=== PATIENT | female | born 2000 | race African-American/Black ===

== ENCOUNTER 2020-08-15 12:00 | Emergency (ER) | payer OTHER ==
[2020-08-15 12:26] LABS: Absolute Lymphocytes (CBC) 1.6 K/uL (0.7-4.9); Hematocrit 43.5 % (36.0-45.0); Lymphocytes % 21.6 % (15.3-44.8); MPV 9.4 fL (7.6-11.3); RBC Red Blood Cell Count 5.09 M/uL (3.86-4.86)
[2020-08-15] MEDS ORDERED: MORPHINE 2 MG/ML SYR ONE (12:31)
[2020-08-15] MEDS ORDERED: NA CHLORIDE 0.9% 1,000 ML ONE (12:31)
[2020-08-15] MEDS ORDERED: ONDANSETRON 4 MG/2 ML VIAL ONE (12:31)
[2020-08-15 12:52] LABS: Albumin 4.3 g/dL (3.4-5.0); Bilirubin Direct 0.2 mg/dL (0-0.2); Bilirubin Total 0.6 mg/dL (0.2-1.0); Protein, Total 8.8 g/dL (6.4-8.2)
[2020-08-15 13:10] LABS: BUN Blood Urea Nitrogen 13 mg/dL (7-18); Bicarbonate 19 mmol/L (21-32); Glucose Level 84 mg/dL (74-106); HCG, Quantitative 107241 mIU/mL (1-3); Potassium 3.6 mmol/L (3.5-5.1); Sodium Level 133 mmol/L (136-145)
--- NOTE | 2020-08-15 13:29 | ER ---
Nurse's Notes [facility] Name: David Foster Age: 20 yrs Sex: Female : 2000 Arrival Date: 08/15/2020 Time: 12:01 Bed 4 Private MD: Diagnosis: 8 weeks gestation of ;Lower abdominal pain, unspecified Presentation: 08/15 12:10 Chief complaint: Patient states: Pt reports that she is 23 weeks confirmed by ss US. Pt is in police custody and states that when she went to lay down in the bunk she had sudden onset of RLQ pain. Coronavirus screen: Client denies travel out of the [place] in the last 14 days. Ebola Screen: Patient denies exposure to infectious person. Patient denies travel to an Ebola-affected area in the 21 days before illness onset. Initial Sepsis Screen: Does the patient meet any 2 criteria? No. Patient's initial sepsis screen is negative. Does the patient have a suspected source of infection? No. Patient's initial sepsis screen is negative. Risk Assessment: Do you want to hurt yourself or someone else? Patient reports no desire to harm self or others. Note Attempted to send patient straight to L\T\D per protocol, but L\T\D nurse, THOR Edwards sent patient back stating that she believed patient was only 16 weeks 1 day. Onset of symptoms was August 15, 2020. 12:10 Method Of Arrival: EMS: [facility] 12:10 Acuity: NAVEED 3 LVN HOME HEALTH: 13:30 2, LMP 03/11/2020 kb Historical: - Allergies: 12:14 No Known Allergies; ss - Home Meds: 12:14 Vitamin Oral tab 1 tab once daily [Active]; unknown BP medication [Active]; ss - PMHx: 12:14 Hypertension; ss - PSHx: 12:14 None; ss - Immunization history:: Adult Immunizations up to date. - Social history:: Smoking status: Patient denies any tobacco usage or history of. Screenin:10 Abuse screen: Denies threats or abuse. Denies injuries from another. Nutritional hb screening: No deficits noted. Tuberculosis screening: No symptoms or risk factors identified. Fall Risk None identified. Assessment: 12:15 General: Appears distressed, Behavior is crying, wailing loudly. Pain: Pain currently hb is 10 out of 10 on a pain scale. Neuro: Level of Consciousness is awake, alert, obeys commands, Oriented to person, place, time, situation. Cardiovascular: Capillary refill < 3 seconds Patient's skin is warm and dry. Respiratory: Respiratory effort is even, unlabored, Respiratory pattern is regular, symmetrical. GI: Reports lower abdominal pain. : No signs and/or symptoms were reported regarding the genitourinary system. EENT: No signs and/or symptoms were reported regarding the EENT system. Derm: Skin is pink, warm \T\ dry. Musculoskeletal: No signs and/or symptoms reported regarding the musculoskeletal system. 13:00 Reassessment: Patient appears in no apparent distress at this time. Patient and/or hb family updated on plan of care and expected duration. Pain level reassessed. Patient is alert, oriented x 3, equal unlabored respirations, skin warm/dry/pink. Vital Signs: 12:10 Resp 25; Weight 55.34 kg; Height 5 ft. 5 in. (165.10 cm); Pain 9/10; ss 13:08 BP 124 / 91; Pulse 77; Resp 16; Pulse Ox 100% ; sv 12:10 Body Mass Index 20.30 (55.34 kg, 165.10 cm) ss ED Course: 12:01 Patient arrived in ED. ss 12:07 Kristy Mensah FNP-C is PHCP. kb 12:07 Nicanor Corona MD is Attending Physician. kb 12:10 Patient has correct armband on for positive identification. Placed in gown. Bed in low hb position. Call light in reach. Side rails up X 1. 12:10 Inserted saline lock: 18 gauge in left antecubital area, using aseptic technique. hb 12:11 law enforcement at bedside. hb 12:13 Triage completed. ss 12:14 Arm band placed on right wrist. ss 12:20 Anneliese Soler, RN is Primary Nurse. hb 12:47 US Abdomen Limited In Process Unspecified. EDMS 13:09 1St Trimest Single 1St Fetus In Process Unspecified. EDMS 13:09 Abo/rh Typing Sent. sv 13:09 Quantitative Hcg Sent. sv 13:39 No provider procedures requiring assistance completed. IV discontinued, intact, hb bleeding controlled, No redness/swelling at site. Administered Medications: 12:20 Drug: morphine 2 mg Route: IVP; Site: left antecubital; hb 13:00 Follow up: Response: No adverse reaction hb 12:20 Drug: NS 0.9% 1000 ml Route: IV; Rate: 1000 ml; Site: left antecubital; hb 12:21 Drug: Zofran (Ondansetron) 4 mg Route: IVP; Site: left antecubital; hb 13:00 Follow up: Response: No adverse reaction hb Outcome: 13:28 Discharge ordered by MD. ratliff 13:39 Discharged to Law Enforcement hb 13:39 Condition: stable 13:39 Discharge instructions given to patient, Instructed on discharge instructions, follow up and referral plans. medication usage, Demonstrated understanding of instructions, follow-up care, medications. 13:40 Patient left the ED. hb Signatures: Dispatcher [employer] EDKristy Nolan, ADRIAN-C COUNTY TAX ASSESSOR-Elisha Santana RN RN sv Angelic Galvin RN RN ss Baxter, Heather, RN RN hb Corrections: (The following items were deleted from the chart) 13:08 12:47 In radiology for Transvaginal Ob+US.RAD.BRZ. CHENTE MADRIDNV
--- NOTE | 2020-08-15 13:29 | RAD REPORT ---
EXAM DESCRIPTION: US - Abdomen Exam Limited - 08/15/2020 12:47 pm CLINICAL HISTORY: ABD PAIN COMPARISON: No comparisons FINDINGS: The gallbladder demonstrates no gallstones. No pericholecystic fluid or gallbladder wall t hickening. The common bile duct is normal measuring 4 mm. The liver demonstrates no findings of intrahepatic biliary dilatation. IMPRESSION: Unremarkable examination.
--- NOTE | 2020-08-15 13:29 | EDPHYS ---
Physician Documentation [facility] Name: David Fsoter Age: 20 yrs Sex: Female : 2000 Arrival Date: 08/15/2020 Time: 12:01 Bed 4 Private MD: ED Physician Nicanor Corona HPI: 08/15 13:30 This 20 yrs old Black Female presents to ER via EMS with complaints of Abdominal Pain. kb 13:30 The patient presents to the emergency department with abdominal pain, of the right kb lower quadrant. The estimated gestational age is 22 weeks. course: care: private OB physician, OOT, Leakage of Fluid: none appreciated, Ultrasound: the patient had an ultrasound, which was normal, Risk/complications: no obvious risks or complications are appreciated. Previous pregnancies: in previous pregnancies patient has had. Associated signs and symptoms: Pertinent positives: abdominal pain, Pertinent negatives: fever, vaginal bleeding. The patient has not experienced similar symptoms in the past. The patient has not recently seen a physician. Pt reports lower abdominal pain that began 15 minutes prior to arrival. Pt in police custody . 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 - Social history:: Smoking status: Patient denies any tobacco usage or history of. ROS: 13:33 Constitutional: Negative for fever, chills, and weight loss, Cardiovascular: Negative kb for chest pain, palpitations, and edema, Respiratory: Negative for shortness of breath, cough, wheezing, and pleuritic chest pain, : Negative for injury, bleeding, discharge, and swelling, MS/Extremity: Negative for injury and deformity, Skin: Negative for injury, rash, and discoloration, Neuro: Negative for headache, weakness, numbness, tingling, and seizure. 13:33 Abdomen/GI: Positive for abdominal pain, Negative for nausea, vomiting, and diarrhea. Exam: 13:33 Constitutional: This is a well developed, well nourished patient who is awake, alert, kb and in no acute distress. Head/Face: Normocephalic, atraumatic. Cardiovascular: Regular rate and rhythm with a normal S1 and S2. No gallops, murmurs, or rubs. No pulse deficits. Respiratory: Respirations even and unlabored. No increased work of breathing, no retractions or nasal flaring. Skin: Warm, dry with normal turgor. Normal color. MS/ Extremity: Pulses equal, no cyanosis. Neurovascular intact. Full, normal range of motion. Neuro: Awake and alert, GCS 15, oriented to person, place, time, and situation. Moves all extremities. Normal gait. 13:33 Abdomen/GI: Inspection: abdomen appears normal, Bowel sounds: normal, in all quadrants, Palpation: soft, in all quadrants, mild abdominal tenderness, in the right upper quadrant and right lower quadrant. Vital Signs: 12:10 Resp 25; Weight 55.34 kg; Height 5 ft. 5 in. (165.10 cm); Pain 9/10; ss 13:08 BP 124 / 91; Pulse 77; Resp 16; Pulse Ox 100% ; sv 12:10 Body Mass Index 20.30 (55.34 kg, 165.10 cm) ss MDM: 12:08 Patient medically screened. kb 13:34 Data reviewed: vital signs, nurses notes. Data interpreted: Pulse oximetry: on room air kb is 100 %. Interpretation: normal. Counseling: I had a detailed discussion with the patient and/or guardian regarding: the historical points, exam findings, and any diagnostic results supporting the discharge/admit diagnosis, lab results, radiology results, the need for outpatient follow up, an OB/Gyne specialist, to return to the emergency department if symptoms worsen or persist or if there are any questions or concerns that arise at home. 08/15 12:08 Order name: Quantitative Hcg kb 08/15 12:08 Order name: Abo/rh Typing kb 08/15 12:08 Order name: Basic Metabolic Panel; Complete Time: 13:14 kb 08/15 12:08 Order name: CBC with Diff; Complete Time: 12:29 kb 08/15 12:09 Order name: HCG, Quantitative; Complete Time: 13:14 EDMS 08/15 12:12 Order name: US Abdomen Limited; Complete Time: 13:30 kb 08/15 12:12 Order name: LFT's; Complete Time: 13:14 kb 08/15 12:12 Order name: Lipase; Complete Time: 13:14 kb 08/15 13:08 Order name: 1St Trimest Single 1St Fetus EDMS 08/15 12:08 Order name: IV Saline Lock; Complete Time: 12:10 kb 08/15 12:08 Order name: Labs collected and sent; Complete Time: 12:20 kb 08/15 12:08 Order name: NPO; Complete Time: 12:10 kb 08/15 12:34 Order name: Labs - recollect needed: recollect ABO RH tube is short and hemolyzed; eb Complete Time: 13:01 Administered Medications: 12:20 Drug: morphine 2 mg Route: IVP; Site: left antecubital; hb 13:00 Follow up: Response: No adverse reaction hb 12:20 Drug: NS 0.9% 1000 ml Route: IV; Rate: 1000 ml; Site: left antecubital; hb 12:21 Drug: Zofran (Ondansetron) 4 mg Route: IVP; Site: left antecubital; hb 13:00 Follow up: Response: No adverse reaction hb Disposition: 08/16 07:28 Co-signature as Attending Physician, Nicanor Corona MD I agree with the assessment and minor plan of care. Disposition: 08/15/20 13:28 Discharged to Home. Impression: 8 weeks gestation of , Lower abdominal pain, unspecified. - Condition is Stable. - Discharge Instructions: First Trimester of , [id number], Abdominal Pain, Adult, [id number]. - Medication Reconciliation Form, Thank You Letter, Antibiotic Education, Prescription Opioid Use form. - Follow up: Emergency Department; When: As needed; Reason: Worsening of condition. Follow up: Private Physician; When: 2 - 3 days; Reason: Recheck today's complaints, Continuance of care, Re-evaluation by your physician. Signatures: Dispatcher [employer] Kristy Mcelroy, DENTAL BILLER-C DENTAL BILLER-Nicanor Peraza MD MD cha Smirch, Shelby, THOR RN Anneliese Carver RN RN hb Botello, Elizabeth eb Corrections: (The following items were deleted from the chart) 08/15 13:08 12:09 Transvaginal Ob+US.RAD.BRZ ordered. EDFL EDMS 13:29 13:28 08/15/2020 13:28 Discharged to Home. Impression: 8 weeks gestation of . kb Condition is Stable. Forms are Medication Reconciliation Form, Thank You Letter, Antibiotic Education, Prescription Opioid Use. Follow up: Emergency Department; When: As needed; Reason: Worsening of condition. Follow up: Private Physician; When: 2 - 3 days; Reason: Recheck today's complaints, Continuance of care, Re-evaluation by your physician. kb 13:40 13:29 08/15/2020 13:28 Discharged to Home. Impression: 8 weeks gestation of ; hb Lower abdominal pain, unspecified. Condition is Stable. Forms are Medication Reconciliation Form, Thank You Letter, Antibiotic Education, Prescription Opioid Use. Follow up: Emergency Department; When: As needed; Reason: Worsening of condition. Follow up: Private Physician; When: 2 - 3 days; Reason: Recheck today's complaints, Continuance of care, Re-evaluation by your physician. kb
--- NOTE | 2020-08-15 13:43 | RAD REPORT ---
EXAM DESCRIPTION: US - 1St Trimest Single 1St Fetus - 08/15/2020 1:08 pm CLINICAL HISTORY: ABD PAIN COMPARISON: No comparisons FINDINGS: A single gestational sac is seen within the uterus. The shape of the sac is within normal limits for gestational age. Within the sac is a single pole with crown-rump length of 2.1 cm, c orrelating to estimated gestational age of 8 weeks 3 days. Estimated date of delivery is 03/24/2021. Heart rate is 168 BPM. The placenta is not yet developed due to early gestational age. 17 mm subchorionic bleed is noted. The maternal adnexa and ovaries are within normal limits. Normal Doppler blood flow was demonstrated to both ovaries. IMPRESSION: Single live early intrauterine gestation with estimated gestational age of 8 weeks 3 day s, ANGELINA 03/24/2021. 17 mm subchorionic bleed.
[2020-08-15 15:52] VITALS: BP 124/91; O2SAT 100
== END 2020-08-15 13:40 | disposition home or self-care (01) ==
LOC: ER 12:00
DX: O26.891 Other specified pregnancy related conditions, first trimester (principal); O16.1 Unspecified maternal hypertension, first trimester; Z3A.08 8 weeks gestation of pregnancy
CPT/HCPCS: 85025; 80048; 36415; 80076; 84702; 83690; 76705; 76801; 96375; 96374; 99284; J2270; J7030; J2405